=== PATIENT | male | born 1970 | race Caucasian/White ===

== ENCOUNTER → 2020-12-14 10:51 | Outpatient (BNVA) | payer OTHER, SELFPAY | PROVIDERS: Family Provider Nurse Practitioner Family; PCP Nurse Practitioner Family; Visit Provider Nurse Practitioner Family | DX: E78.5 Hyperlipidemia, unspecified (principal); I10 Essential (primary) hypertension; I25.10 Atherosclerotic heart disease of native coronary artery without angina pectoris; Z95.5 Presence of coronary angioplasty implant and graft | CPT/HCPCS: 80048 ==

== ENCOUNTER 2021-07-11 07:55 | Outpatient (CLI) | payer OTHER, SELFPAY ==
[2021-07-11 07:50] VITALS: BP 135/83; PULSE 84; RESP 16; TEMP 36.9; O2SAT 95; BMI 32.3
[2021-07-11 08:33] VITALS: BP 133/87; PULSE 80; RESP 17; O2SAT 92
[2021-07-11 09:37] VITALS: BP 140/91; PULSE 78; RESP 16; TEMP 36.8; O2SAT 94
[2021-07-11 09:38] VITALS: BP 140/91; PULSE 78; RESP 16; TEMP 36.8; O2SAT 94
== END 2021-07-11 07:56 | disposition home or self-care (01) ==
LOC: OPS 07:57
PROVIDERS: PCP Nurse Practitioner Family; Visit Provider Nurse Practitioner Family
DX: U07.1 COVID-19 (principal)
CPT/HCPCS: 96365